=== PATIENT | male | born 1945 | race Caucasian/White ===

== ENCOUNTER 2019-10-13 20:28 | Emergency (ER) | payer MEDICARE, OTHER ==
[2019-10-13] MEDS ORDERED: Klor Con 10 MEQ PO ONE ×3 (20:51→22:08)
[2019-10-13] MEDS ORDERED: POTASSIUM CHLORIDE 20 mEq IN WATER 100ML 100 ML IV ONE (20:53)
[2019-10-13] MEDS ORDERED: POTASSIUM CHLORIDE 20 mEq IN WATER 100ML 20 MEQ/100 ML BAG IV SCH (21:00)
[2019-10-13] MEDS ORDERED: Sodium Chloride 0.9% 500 ML 500 ML IV ONE (21:17)
--- NOTE | 2019-10-13 21:24 | ERPHSYRPT ---
- History of Present Illness Time Seen by Provider: 10/13/19 21:20 Source: patient Exam Limitations: no limitations Patient Subjective Stated Complaint: Pt had labs drawn this am at this hospital and Dr. Shultz called him and told him to come to ER to get pills because his potassium was low. Dr. Shultz tried to call prescription into pharmacy and everything was already closed Triage Nursing Assessment: Pt alert & oriented. Ambulated to room with a steady gait. Respirations easy and non-labored. Denies any chest pain or difficulty breathing Physician History: Pt had labs drawn this am at this hospital and Dr. Shultz called him and told him to come to ER to get pills because his potassium was low. Dr. hSultz tried to call prescription into pharmacy and everything was already closed Timing/Duration: today Associated Symptoms: denies symptoms Allergies/Adverse Reactions: No Known Drug Allergies Allergy (Verified 09/24/16 09:02) Home Medications: Amlodipine Besylate 5 mg [Norvasc 5 mg] 5 mg PO DAILY 05/10/16 [History] Aspirin EC 325 mg [Ecotrin 325 MG] 325 mg PO DAILY 05/10/16 [History] Isosorbide Mononitrate 60 mg [Imdur 60MG] 30 mg PO DAILY 05/10/16 [History] Metoprolol Tartrate [Lopressor] 0 mg PO BID 05/10/16 [History] Simvastatin 10 mg PO DAILY 05/10/16 [History] cilostazoL [Cilostazol] 50 mg PO BID 09/24/16 [History] Clopidogrel Bisulfate [Clopidogrel] 75 mg PO DAILY 10/13/19 [History] Furosemide 40 mg PO BID 10/13/19 [History] Hx Tetanus, Diphtheria Vaccination/Date Given: Yes (up to date) Hx Influenza Vaccination/Date Given: Yes Hx Pneumococcal Vaccination/Date Given: No Travel Risk - International Travel Have you traveled outside of the country in past 3 weeks: No Have you or anyone close to you been diagnosed with or: No Do your reside in a community with a known COVID-19 case?: Yes If Yes where:: [facility] - Coronavirus Screening Has patient experienced Coronavirus symptoms: No - Review of Systems Constitutional: No Fever, No Chills Eyes: No Symptoms Ears, Nose, & Throat: No Symptoms Respiratory: No Cough, No Dyspnea Cardiac: No Chest Pain, No Edema, No Syncope Abdominal/Gastrointestinal: No Abdominal Pain, No Nausea, No Vomiting, No Diarrhea Genitourinary Symptoms: No Dysuria Musculoskeletal: No Back Pain, No Neck Pain Skin: No Rash Neurological: No Dizziness, No Focal Weakness, No Sensory Changes Psychological: No Symptoms Endocrine: No Symptoms All Other Systems: Reviewed and Negative - Past Medical History Pertinent Past Medical History: Yes Neurological History: No Pertinent History ENT History: No Pertinent History Cardiac History: Aneurysm, Coronary Artery Disease, Hypertension, Myocardial Infarction (NM), Peripheral Vascular Disease Respiratory History: Sleep Apnea Endocrine Medical History: No Pertinent History Musculoskeletal History: Arthritis GI Medical History: No Pertinent History History: No Pertinent History Psycho-Social History: No Pertinent History Male Reproductive Disorders: No Pertinent History - Past Surgical History Past Surgical History: Yes Neuro Surgical History: No Pertinent History Cardiac: CABG, Cardiac Catheterization, Vascular Surgery Respiratory: No Pertinent History Gastrointestinal: Hernia Repair Genitourinary: No Pertinent History Musculoskeletal: No Pertinent History Male Surgical History: No Pertinent History Other Surgical History: three abdomial aortic aneurysm repairs all at the same time. bilateral femoral bypass surgery. artificial josue placed in right leg, then replaced with doner vein. - Social History Smoking Status: Former smoker How long have you smoked: 50+ years Exposure to second hand smoke: No Drug Use: none Patient Lives Alone: No - Nursing Vital Signs Nursing Vital Signs: Initial Vital Signs Pulse Rate 61 10/13/19 20:37 Respiratory Rate 18 10/13/19 20:37 Blood Pressure 127/60 10/13/19 20:37 O2 Sat by Pulse Oximetry 97 10/13/19 20:37 Pain Scale Pain Intensity 0 - Physical Exam General Appearance: no apparent distress, alert Eye Exam: PERRL/EOMI, eyes nml inspection Ears, Nose, Throat Exam: normal ENT inspection, TMs normal, pharynx normal, moist mucous membranes Neck Exam: normal inspection, non-tender, supple, full range of motion Respiratory Exam: normal breath sounds, lungs clear, No respiratory distress Cardiovascular Exam: regular rate/rhythm, normal heart sounds, normal peripheral pulses Gastrointestinal/Abdomen Exam: soft, normal bowel sounds, No tenderness, No mass Back Exam: normal inspection, normal range of motion, No CVA tenderness, No vertebral tenderness Extremity Exam: normal inspection, normal range of motion, pelvis stable Neurologic Exam: alert, oriented x 3, cooperative, normal mood/affect, nml cerebellar function, nml station & gait, sensation nml, No motor deficits Skin Exam: normal color, warm, dry, No rash Lymphatic Exam: No adenopathy SpO2: 97 - Course Nursing assessment & vital signs reviewed: Yes Ordered Tests: Active Orders 24 hr Category Date Time Status Isolation, Initiate & Maintain Q4H Care 10/13/19 20:51 Active Medication Summary Generic Name Dose Route Start Last Admin Trade Name Freq PRN Reason Stop Dose Admin Potassium Chloride 20 meq in 100 mls @ 50 mls/hr 10/13/19 21:00 10/13/19 20: 58 Potassium Chloride 20 Meq In Water 100ml IV 10/14/19 00:59 50 mls/hr Q2H DAVID Administration Sodium Chloride 500 mls @ 100 mls/hr 10/13/19 21:30 10/13/19 21:19 Sodium Chloride 0.9% 500 Ml IV 11/12/19 21:29 100 mls/hr .Q5H DAVID Administration Discontinued Medications Generic Name Dose Route Start Last Admin Trade Name Freq PRN Reason Stop Dose Admin Sodium Chloride Confirm 10/13/19 21:17 Sodium Chloride 0.9% 500 Ml Administered 10/13/19 21:18 Dose 500 mls @ ud IV .STK-MED ONE Potassium Chloride 40 meq 10/13/19 20:51 10/13/19 20:58 Klor Con 10 Meq PO 10/13/19 20:52 40 meq STAT ONE Administration Potassium Chloride Confirm 10/13/19 20:53 Klor Con 10 Meq Administered 10/13/19 20:54 Dose 40 meq PO .STK-MED ONE - Progress Progress: improved Progress Note: 10/13/19 21:21 KCL 40 meq Po given, K-rider 20 meq given, will send patient home with three 50 meq Klyte tabs home as pharmacies are closed tommorow. Counseled pt/family regarding: lab results, diagnosis, need for follow-up - Departure Departure Disposition: Home Clinical Impression: Hypokalemia due to excessive renal loss of potassium Condition: Stable Critical Care Time: No Referrals: JIMENA KAUR MD [Primary Care Provider] - Instructions: Hypokalemia (DC) Additional Instructions: Discharge/Care Plan CATALINOHELDER DOCKERY was seen on 10/13/19 in the Emergency Room. The patient was counseled regarding Diagnosis,Lab results, Imaging studies, need for follow up and when to return to the Emergency Room. Prescriptions given: Discharge Note I have spoken with the patient and/or caregivers. I have explained the patient' s condition, diagnosis and treatment plan based on the information available to me at this time. I have answered the patient's and/or caregiver's questions and addressed any concerns. The patient and/or caregivers have as good understanding of the patient's diagnosis, condition and treatment plan as can be expected at this point. The vital signs have been stable. The patient's condition is stable and appropriate for discharge from the emergency department. The patient will pursue further outpatient evaluation with the primary care physician or other designated or consulting physician as outlined in the discharge instructions. The patient and/or caregivers are agreeable to this plan of care and follow-up instructions have been explained in detail. The patient and/or caregivers have received these instruction. The patient/and or caregivers are aware that any significant change in condition or worsening of symptoms should prompt an immediate return to this or the closest emergency department or call 911. Prescriptions: Potassium Chloride [K-Dur] 20 meq PO BID #60 [email or web address]
[2019-10-13] MEDS ORDERED: Sodium Chloride 0.9% 500 ML 500 ML IV SCH (21:30)
[2019-10-13 23:31] VITALS: O2SAT 95
[2019-10-13 23:33] VITALS: BP 128/70; PULSE 94
[2019-10-14] MEDS ORDERED: Klor Con 10 MEQ PO SCH (10:00)
== END 2019-10-13 23:34 | disposition home or self-care (01) ==
LOC: ED 20:28
DX: E87.6 Hypokalemia (principal); I25.10 Atherosclerotic heart disease of native coronary artery without angina pectoris; I10 Essential (primary) hypertension; I25.2 Old myocardial infarction; I73.9 Peripheral vascular disease, unspecified; Z72.0 Tobacco use; G47.30 Sleep apnea, unspecified; F51.9 Sleep disorder not due to a substance or known physiological condition, unspecified; M19.90 Unspecified osteoarthritis, unspecified site; Z79.899 Other long term (current) drug therapy
CPT/HCPCS: 36415; 80053; 81001; 82306; 82570; 83970; 84100; 84156; 85027; 96365; 99284; G0103; J3480; A9270-GY

== ENCOUNTER 2021-07-20 18:53 | Emergency (ER) | payer MEDICARE, OTHER | END 2021-07-20 19:30 | disposition left against medical advice (07) | LOC: ED 18:53 | DX: Z53.21 Procedure and treatment not carried out due to patient leaving prior to being seen by health care provider (principal) | CPT/HCPCS: 99282 ==